=== PATIENT | female | born 1965 | race Caucasian/White ===

== ENCOUNTER → 2018-01-02 | Outpatient (CLI) | payer OTHER ==
[~2018-01-02] MED LIST: ALP25 PO; BUPR300T55 PO; ENOX30DI4 SQ; FAMO10TA86 PO; IBU800 PO; IBUP50TA PO; LOR10 PO; LOR5 PO; MELO7.5O4 PO; METR-1 PO; OXY10 PO; OXYC10TA67 PO; PER PO; PSE30 PO
--- NOTE | 2018-01-02 16:53 | RADIOLOGY IMAGING REPORT ---
FACILITY: [facility] - [place] PATIENT NAME: Seema Carney : 1965 MR: [id number] V: [id number] EXAM DATE: ORDERING PHYSICIAN: DAHLIA MORAN TECHNOLOGIST: Location: Patient: Seema Carney : 1965 Visit/Account:[id number] Date of Sevice: 01/02/2018 CHEST PA AND LAT HISTORY: Pneumonia COMPARISON: None FINDINGS: Cardiomediastinal contours: Normal Lungs and pleura: Normal Bones/soft tissues: Normal Other findings: None significant IMPRESSION: 1. Normal chest Report Dictated By: Luis E Arambula MD at 01/02/2018 4:48 PM Report E-Signed By: Luis E Arambula MD at 01/02/2018 4:48 PM WSN:[id number]
== END ==
LOC: RAD 16:20
PROVIDERS: ATTEND Physician Assistant
DX: J18.9 Pneumonia, unspecified organism (principal)
CPT/HCPCS: 71046